=== PATIENT | female | born 1970 | race American Indian/Alaskan Native ===

== ENCOUNTER 2018-12-03 16:39 | Emergency (ER) | payer BC, OTHER ==
[2018-12-03 16:39] VITALS: BMI 23.6
[2018-12-03 16:48] VITALS: BP 132/89; PULSE 73; RESP 18; TEMP 97.6; O2SAT 96
--- NOTE | 2018-12-03 16:52 | C.PDOC ---
History Of Present Illness 48 year old female presents to ED with complaint of cut to her left hand. Patient does not know when the last time she had her tetanus vaccine was. She states that she was cutting something 3 days ago and cut her left hand. Patient is right hand dominant. She states she applied some bacitracin on her left hand and denies any redness, bubbles or current bleeding from the wound. Patient denies any numbness, weakness, fever, chills, and sweats. Time Seen by Provider: 12/03/18 16:52 Chief Complaint (Nursing): Abnormal Skin Integrity History Per: Patient History/Exam Limitations: no limitations Onset/Duration Of Symptoms: Days (3) Current Symptoms Are (Timing): Still Present Location Of Injury: Left: Hand (cut) Past Medical History Reviewed: Historical Data, Nursing Documentation, Vital Signs Vital Signs: Last Vital Signs Temp 97.6 F 12/03/18 16:43 Pulse 73 12/03/18 16:43 Resp 18 12/03/18 16:43 BP 132/89 12/03/18 16:43 Pulse Ox 96 12/03/18 16:43 - Medical History PMH: No Chronic Diseases Surgical History: No Surg Hx - [facility] Procedures IMMOBILIZ/WOUND ATTN NEC (08/18/14) Family History: States: No Known Family Hx - Social History Hx Alcohol Use: No Hx Substance Use: No - Immunization History Hx Tetanus Toxoid Vaccination: No Hx Influenza Vaccination: No Hx Pneumococcal Vaccination: No Review Of Systems Constitutional: Negative for: Fever, Chills, Sweats, Weakness Eyes: Negative for: Pain, Vision Change ENT: Negative for: Ear Pain, Ear Discharge, Nose Congestion, Mouth Pain Cardiovascular: Negative for: Chest Pain, Palpitations Respiratory: Negative for: Cough, Shortness of Breath, SOB with Excertion Gastrointestinal: Negative for: Nausea, Vomiting, Abdominal Pain, Constipation Genitourinary: Negative for: Dysuria, Frequency Musculoskeletal: Positive for: Other (cut to the left hand). Negative for: Neck Pain, Back Pain Skin: Negative for: Rash Neurological: Negative for: Weakness, Numbness, Dizziness Physical Exam - Physical Exam Appears: Well, Non-toxic, No Acute Distress Skin: Normal Color, Warm, Dry Head: Atraumatic, Normacephalic Neck: Normal ROM, Trachea Midline, Supple, Other (no meningeal signs) Chest: Symmetrical, No Deformity Cardiovascular: Rhythm Regular, No Friction Rub Respiratory: No Accessory Muscle Use, No Rales, No Rhonchi, No Wheezing Gastrointestinal/Abdominal: No Tenderness, No Distention Back: Normal Inspection, No CVA Tenderness, No Vertebral Tenderness Extremity: Normal ROM, No Calf Tenderness, Other (laceration to the medial aspect of the left hand, 1.5 cm in length , no active bleeding, good homeostasis, neurovascular intact, no erythema, no visible tendon, granulated tissue noted within the wound, wound healing by secondary intention, no infectious process noted) Pulses: Left Radial: Normal, Right Radial: Normal, Left Dorsalis Pedis: Normal, Right Dorsalis Pedis: Normal Neurological/Psych: Oriented x3, Normal Speech, Normal Cognition ED Course And Treatment O2 Sat by Pulse Oximetry: 96 (in RA) Medical Decision Making Medical Decision Making: Impression: 48 year old female with cut to the left hand. Outside of lac repair window. No tendon involvement or signs of infection. Good hemostasis. Plan Tetanus vaccine given to patient. Cleaning wound, closure with steri strips and followup Re-evaluation. Discussed plan with patient who expresses understanding. All questions answered and there is agreement with the plan to discharge home with instructions. Patient stable for discharge. Return if symptoms persist or worsen. Disposition - Disposition Referrals: [facility] [Outside] [facility] [Outside] [facility] [Outside] Otf Osborne MD [Staff Provider] - Disposition: HOME/ ROUTINE Disposition Time: 17:56 Condition: GOOD Additional Instructions: MEHRDAD MUNSON, thank you for letting us take care of you today. Your provider was Delgado Askew and you were treated for HAND LACERATION. The emergency medical care you received today was directed at your acute symptoms. If you were prescribed any medication, please fill it and take as directed. It may take several days for your symptoms to resolve. Return to the Emergency Department if your symptoms worsen, do not improve, or if you have any other problems. Please contact your doctor or call one of the physicians/clinics you have been referred to that are listed on the Patient Visit Information form that is included in your discharge packet. Bring any paperwork you were given at discharge with you along with any medications you are taking to your follow up visit. Our treatment cannot replace ongoing medical care by a primary care provider outside of the emergency department. Thank you for allowing the [facility] team to be part of your care today. If you had an X-Ray or CT scan: A Radiologist will review the ED reading if any change in treatment is needed we will contact you. If you had a blood, urine, or wound culture: It will take several days for the results, if any change in treatment is needed we will contact you. If you had an STI test: It will take 48 hours for the results. Please call after 1 week if you have not heard back. Prescriptions: Cephalexin [Keflex] 500 mg PO Q6H 5 Days #20 capsule Instructions: Wound Care (DC), Laceration (ED) Forms: [employer] ([place]occan), Work Excuse - Clinical Impression Clinical Impression: Skin laceration, Laceration of hand - Scribe Statement The provider has reviewed the documentation as recorded by the Scribe (Shobha Joaquin) All medical record entries made by the Scribe were at my direction and personally dictated by me. I have reviewed the chart and agree that the record accurately reflects my personal performance of the history, physical exam, medical decision making, and the department course for this patient. I have also personally directed, reviewed, and agree with the discharge instructions and disposition.
[2018-12-03] MEDS ORDERED: Tdap Vaccine 0.5 ml Vial (10-64 yrs) IM ONE ×2 (17:27→17:46)
== END 2018-12-03 18:06 | disposition home or self-care (01) ==
LOC: C.ER 16:39
DX: S61.412A Laceration without foreign body of left hand, initial encounter (principal); W26.0XXA Contact with knife, initial encounter